=== PATIENT | female | born 1990 | race African-American/Black ===

== ENCOUNTER 2020-01-22 07:26 | Day surgery (SDC) | payer OTHER ==
[~2020-01-22 07:26] MED LIST: BUPIVACAINE HCL 0.5 % INJ/PF 30 ML SDV ONE; CEFAZOLIN 2 GM/D5W RTU 2 GM/50 ML RTUPB IV PRN; DEXAMETHASONE SOD PHOSPHATE INJ 4 MG/1 ML VIAL ONE; FENTANYL CITRATE INJ/PF 100 MCG/2 ML AMPUL ONE; LIDOCAINE 1% INJ-PF (10 MG/ML) 30 ML SDV ONE; MIDAZOLAM 2 MG/2 ML INJ ONE; ONDANSETRON HCL INJ/PF 4 MG/2 ML SDV ONE; PROPOFOL INJ 200 MG/20 ML VIAL IV ONE
[2020-01-22] MEDS ORDERED: CEFAZOLIN 2 GM/D5W RTU 2 GM/50 ML RTUPB IV ONE (08:06)
[2020-01-22 08:11] LABS: APPEARANCE,URINE CLOUDY; BILIRUBIN,URINE NEGATIVE (NEGATIVE); COLOR,URINE YELLOW; GLUCOSE, URINE NEGATIVE (NEGATIVE); KETONES,URINE NEGATIVE (NEGATIVE); LEUKOCYTE ESTERASE,URINE SMALL (NEGATIVE); NITRITE,URINE NEGATIVE (NEGATIVE); PROTEIN,URINE NEGATIVE (NEGATIVE); URINE SPECIFIC GRAVITY 1.013; UROBILINOGEN,URINE NEGATIVE mg/dL (<2.0)
[2020-01-22 09:00] LABS: POTASSIUM 3.7 mmol/L (3.6-5.0)
--- NOTE | 2020-01-22 09:29 | PDOC PROGRESS REPORT ---
Subjective Date:: 01/22/20 Subjective:: Patient sustained injury to her left hand approximately 2-1/2 weeks ago. Origin al plan was to proceed with nonoperative intervention however patient states the deformity was somewhat concerning and elected to proceed with operative treatment. Patient states her pain and motion have improved since most recent visit. Denies numbness or tingling. Pain 03/06. Reason For Visit: S62.313A Physical Exam Vital Signs: Temp Pulse Resp BP Pulse Ox 98.1 F 59 L 16 158/92 H 100 01/22/20 08:45 01/22/20 08:45 01/22/20 08:45 01/22/20 08:45 01/22/20 08:45 Intake & Output 01/21/20 01/22/20 01/23/20 06:59 06:59 06:59 Intake Total 0 Balance 0 Weight 72.57 kg Musculoskeletal exam: PRESENT: other - Left hand: Notable deformity along the fourth metacarpal with tenderness upon palpation. Full active flexion/extension. No sensory deficits. No evidence of malrotation. Appropriate tenderness to palpation. Deformity of the fourth metacarpal distally noted. Results Laboratory Results: 01/22/20 08:22 01/22/20 01/22/20 07:50 08:22 Sodium 134.5 L Potassium 3.7 Chloride 103 Carbon Dioxide 23 Anion Gap 9 Urine Color YELLOW Urine Appearance CLOUDY Urine pH 6.0 Ur Specific [place] 1.013 Urine Protein NEGATIVE Urine Glucose (UA) NEGATIVE Urine Ketones NEGATIVE Urine Blood NEGATIVE Urine Nitrite NEGATIVE Ur Leukocyte Esterase SMALL H Urine WBC (Auto) 3 Urine RBC (Auto) 1 Assessment & Plan - Diagnosis (1) Fracture, metacarpal shaft Qualifiers: Metacarpal bone: fourth Fracture type: closed Fracture alignment: displaced Laterality: left Is this a current diagnosis for this admission?: Yes Plan: Patient sustained third/fourth metacarpal shaft fractures. Original plan was to proceed with nonoperative intervention but given the severity of displacement patient had second thoughts and wanted to proceed with operative treatment. Subsequently she contacted my office and once again reviewed radiographs and given the displacement felt it was reasonable to proceed with operative intervention if this was patient's desire. After further discussion in the preop holding area today patient had revisions about operative treatment and we once again discussed treatment options including operative versus nonoperative intervention risk and benefits of both although there is displacement and angular deformity which meets operative indications she does have full range of motion without evidence of extension lag and thus it is reasonable to proceed with nonoperative treatment after discussing this option patient patient decided she would prefer not operative treatment. Patient will follow-up as scheduled. - Time Time Spent with patient: 15-24 minutes
[2020-01-22 11:09] VITALS: BP 158/92
== END 2020-01-22 09:38 | disposition home or self-care (01) ==
LOC: OROUT 07:26
PROVIDERS: ATTEND Orthopaedic Surgery
DX: S62.323A Displaced fracture of shaft of third metacarpal bone, left hand, initial encounter for closed fracture (principal); S62.325A Displaced fracture of shaft of fourth metacarpal bone, left hand, initial encounter for closed fracture; V89.2XXA Person injured in unspecified motor-vehicle accident, traffic, initial encounter; Z53.29 Procedure and treatment not carried out because of patient's decision for other reasons; Z20.828 Contact with and (suspected) exposure to other viral communicable diseases; F17.200 Nicotine dependence, unspecified, uncomplicated; I10 Essential (primary) hypertension; Z79.899 Other long term (current) drug therapy
CPT/HCPCS: 36415; 80051; 87635; 81025; 81001; J0690; C9803; J1100; J2250; J2405; J2704; J3010; J3490